=== PATIENT | female | born 1985 | race Caucasian/White ===

== ENCOUNTER 2019-01-08 18:29 | Emergency (ER) | payer OTHER ==
--- NOTE | 2019-01-08 18:38 | PDOC ---
History of Present Illness - General Chief Complaint: Syncope/Near Syncope Stated Complaint: SYNCOPE Time Seen by Provider: 01/08/19 18:32 - History of Present Illness Initial Comments: 01/08/19 18:50 Chief complaint: Fainting History of present illness: [place] standing and [place] coffee, momentary loss of consciousness, prevent it from falling by a friend who caught her and lowered her to the floor, episode lasted less than 1 minute according to her friend, who is in attendance with her today. She woke up without confusion, headache, or other symptoms. This has occurred numerous times in the past, she is under the care of a joint sealer in [place] associated with [facility], Dr. Teddy Valentine She is uncertain of the diagnosis, but has had multiple EKGs and an echocardiogram. She is on no cardiac medication. Review of systems: Denies chest pain, shortness of breath, abdominal pain, nausea, vomiting, diarrhea, diaphoresis, hematemesis, melena, bloody stool, recent URI symptoms, sore throat, cough, vaginal bleeding or discharge, urinary tract symptoms. Denies focal neurologic symptoms or visual symptoms, denies unsteadiness of gait. Admits "palpitations". Past medical history: Multiple fainting episodes. Otherwise negative. No active or remote significant medical or surgical problems. 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 She denies stress anxiety or depression. She denies tobacco or nonprescription drugs. Occasional social alcohol, none recently. Family history: There is no history of early coronary artery disease, other cardiac diseases, diabetes or other metabolic diseases, or cancer in her immediate family. Physical exam: Alert and oriented well-developed well-nourished no acute distress cheerful and cooperative Afebrile, vital signs normal Head atraumatic. PERRLA 4 mm, fundi benign with sharp disc margins and good central venous pulsations, no hemorrhages or exudates, EOMs full without diplopia, visual bach intact to confrontation ENT clear Neck supple without bruit mass or nodes. There is no point tenderness or deformity. Full range of motion without pain Chest clear with full breath sounds bilaterally, no wheezes rales or rhonchi No chest wall or rib cage tenderness or deformity CV S1 and S2 normal without murmur rub or gallop pulses full and symmetric no JVD or edema no bruits 90 and regular Abdomen soft nontender without mass or organomegaly. No CVAT No pelvic or spine deformity or tenderness Neurological C2 to 12 intact. Strength full and symmetric. No focal sensory or motor deficits. Cerebellar function intact. Gait stable and unimpaired Extremities no CCE Skin clear, no rash, adequate turgor and wet mucous membranes Impression: Likely vasovagal syncope. No risk factors for cardiac disease. No significant physical findings An: EKG and monitoring. CBD and chemistries. Attempt to contact joint sealer for further information. Further evaluation and treatment depending on results. Past History - Past Medical History Allergies/Adverse Reactions: Allergies Allergy/AdvReac Type Severity Reaction Status Date / Time aspirin Allergy Difficulty Verified 01/08/19 18:35 Breathing Home Medications: Ambulatory Orders NK [No Known Home Medication] 01/08/19 Medical Decision Making - Medical Decision Making 01/08/19 19:01 EKG shows normal sinus rhythm 85/m, normal axes and intervals. No ST-T wave changes. Normal EKG. Patient's joint sealer was placed to [place] at [phone]. Awaiting a call back. Discharge - Discharge Information Condition: Stable - Follow up/Referral - Patient Discharge Instructions - Post Discharge Activity
[2019-01-08 19:04] VITALS: TEMP 98.2; BMI 20.7
--- NOTE | 2019-01-08 19:34 | PDOC ---
*Physical Exam - Vital Signs Last Vital Signs Temp Pulse Resp BP Pulse Ox 98.2 F 81 16 127/91 100 01/08/19 18:30 01/08/19 18:30 01/08/19 18:30 01/08/19 18:30 01/08/19 18:30 ED Treatment Course - LABORATORY CBC & Chemistry Diagram: 01/08/19 19:10 01/08/19 19:10 ED Progress Note - Progress Note Progress Note: 01/08/19 19:31 Care of this patient was transferred to me from Dr. Vera at 1900 hrs. Patient is a 33-year-old female who has history of what appears to be vasovagal pink syncope in the past. Patient had a another vasovagal syncopal episode prior to arrival in the ED. Patient has a workup that is pending. Patient is seen a stull installer and the was told that there is nothing to be concerned about. Patient's EKG here was completely normal. Will follow up on the rest of the workup and patient will be discharged and told follow-up with her stull installer unless there is something significantly abnormal. Discharge - Discharge Information Problems reviewed: Yes Clinical Impression/Diagnosis: Syncope Qualifiers: Syncope type: vasovagal syncope Qualified Code(s): R55 - Syncope and collapse Condition: Stable - Admission No - Follow up/Referral - Patient Discharge Instructions Additional Instructions: Call your stull installer and get an appointment follow-up in the morning. Return to the emergency department immediately with ANY new, persistent or worsening symptoms. Continue any medications as previously prescribed by your physician. You should follow up with your primary doctor as soon as possible regarding today's emergency department visit. . Please make sure your doctor reviews the results of your emergency evaluation. Thank you for coming to the Emergency Department today for your care. It was a pleasure to see you today. Please note that your evaluation is INCOMPLETE until you follow-up with your doctor. - Post Discharge Activity
[2019-01-08 19:39] LABS: BASO % 0.8 % (0-2.0); EOS % 4.1 % (0-4.5); HEMATOCRIT 38.1 % (32.4-45.2); HEMOGLOBIN 12.5 GM/dl (10.7-15.3); MCHC 32.7 g/dl (32.0-36.0); MEAN CELL VOLUME 88.7 fl (80-96); MEAN PLT VOLUME 9.1 fl (7.5-11.1); MONO % 6.8 % (3.8-10.2); NEUT % 48.3 % (42.8-82.8); PLATELET COUNT 336 K/MM3 (134-434); RBC 4.29 M/mm3 (3.60-5.2); RDW 15.3 % (11.6-15.6); WHITE BLOOD COUNT 6.8 K/mm3 (4.0-10.8)
[2019-01-08 19:46] LABS: ALBUMIN 4.7 g/dl (3.4-5.0); BILIRUBIN,TOTAL 0.5 mg/dl (0.2-1); CALCIUM 9.1 mg/dl (8.5-10); CREATININE 0.7 mg/dl (0.55-1.3); POTASSIUM 4.4 mmol/L (3.5-5.1); TOT PROT 8.1 g/dl (6.4-8.2)
[2019-01-08 20:30] VITALS: BP 104/73; PULSE 76
== END 2019-01-08 20:30 | disposition home or self-care (01) ==
LOC: FER 18:29
DX: R55 Syncope and collapse (principal); Z88.8 Allergy status to other drugs, medicaments and biological substances
CPT/HCPCS: 36415; 80053; 82550; 84484; 84703; 85025; 99285-25